=== PATIENT | female | born 1975 | race Caucasian/White ===

== ENCOUNTER 2023-02-12 00:40 | Emergency (ER) | payer MEDICAID, SELFPAY ==
[2023-02-12 00:43] VITALS: BP 171/89; PULSE 61; RESP 16; TEMP 37.1; O2SAT 100; BMI 29.2
--- NOTE | 2023-02-12 00:54 | CTR_ITS ---
PROCEDURE INFORMATION: Exam: CT Abdomen And Pelvis With Contrast Exam date and time: 02/12/2023 1:28 AM Age: 48 years old Clinical indication: Abdominal pain; Localized; Right; Prior surgery; Surgery date: 6+ months; Surgery type: Appy; Patient HX: RT sided abd pain with nausea TECHNIQUE: Imaging protocol: Computed tomography of the abdomen and pelvis with contrast. Radiation optimization: All CT scans at this facility use at least one of these dose optimization techniques: automated exposure control; mA and/or kV adjustment per patient size (includes targeted exams where dose is matched to clinical indication); or iterative reconstruction. Contrast material: OMNI 350; Contrast volume: 100 ml; Contrast route: INTRAVENOUS (IV); REPORTING DATA: Count of CT and Cardiac NM exams in prior 12 months: This patient has received 0 known CTs and 0 known cardiac nuclear medicine studies in the 12 months prior to the current study. COMPARISON: No relevant prior studies available. RADIATION DOSE METRICS: Total DLP (mGy-cm): 683.18 FINDINGS: Mediastinal space: There is mucosal thickening of the distal esophagus. Fluid is present in the esophagus. Liver: Normal. No mass. Gallbladder and bile ducts: Normal. No calcified stones. No ductal dilation. Pancreas: Normal. No ductal dilation. Spleen: Normal. No splenomegaly. Adrenal glands: Normal. No mass. Kidneys and ureters: There is a 5 mm calculus in the distal right ureter at the UVJ. Moderate right hydronephrosis/hydroureter with mild right perinephric/periureteral inflammatory stranding. Small nonobstructing left renal calculus. Stomach and bowel: Unremarkable. No obstruction. No mucosal thickening. Appendix: No evidence of appendicitis. Intraperitoneal space: Unremarkable. No free air. No significant fluid collection. Vasculature: Unremarkable. No abdominal aortic aneurysm. Lymph nodes: Unremarkable. No enlarged lymph nodes. Urinary bladder: Unremarkable as visualized. Reproductive: Unremarkable as visualized. Bones/joints: Unremarkable. No acute fracture. Soft tissues: Unremarkable. CT/CT abdomen pelvis w con* [id number] IMPRESSION: 1. There is a 5 mm calculus at the right UVJ with obstructive changes as described above. 2. There is mucosal thickening of the distal esophagus consistent with esophagitis. Follow-up to exclude neoplasm as clinically warranted. 3. There is fluid in the esophagus consistent with reflux.
--- NOTE | 2023-02-12 00:55 | W.ED.ABDPA2 ---
HPI - Abdominal Pain General: Chief Complaint: Abdominal Pain Stated Complaint: abd pain Time Seen by Provider: 02/12/23 00:42 Source: patient Mode of arrival: ambulatory Limitations: no limitations History of Present Illness: 48-year-old female states that she been having right sided abdominal pain that started 8 PM states is very sharp pain mainly in her right upper abdomen but it is her right abdomen she states pain is currently an 8 out of 10 its been constant she had nausea she denies any fevers she denies any worsening proving factors denies any dysuria. Associated Symptoms: Reports nausea; Denies chills, dysuria and fever(s) Review of Systems Const: Denies: fever(s), chills, body aches or change in appetite Eyes: Denies: blurry vision or eye discomfort ENMT: Denies: throat pain or dental pain Card: Denies: chest pain Resp: Denies: dyspnea GI: Reports: abdominal pain and nausea : Denies: dysuria Musc: Denies: neck pain or back pain Skin/Breast: Denies: rash Neuro: Denies: headache(s) Psych: Denies: depression Nabil/Lymph: Denies: easy bruising All/Imm: Denies: urticaria Physical Exam Const: COMMON NORMALS: no acute distress, patient oriented x3 and healthy appearing HENMT: COMMON NORMALS: normocephalic HEAD & SCALP: normocephalic Eye: COMMON NORMALS: conjunctivae normal CONJUNCTIVA: Yes conjunctivae normal Neck/C-Spine: COMMON NORMALS: full ROM and supple Chest: COMMONS NORMALS: normal inspection of the chest Resp: COMMON NORMALS: normal respiratory effort, No retractions, No use of accessory muscles and clear to auscultation bilaterally AUSCULTATION: clear to auscultation bilaterally Cardio: COMMON NORMALS: regular rate, regular rhythm and No murmurs present (Cardio) RATE: regular rate RHYTHM: regular rhythm GI: COMMON NORMALS: Normal to inspection, nondistended, normoactive bowel sounds present, Soft to palpation and no masses PALPATION: Yes Soft to palpation OTHER: right sided abd tenderness Extremity: COMMON NORMALS: normal to inspection and full ROM Neuro: COMMON NORMALS: patient oriented x3, moves all extremities and no focal motor deficits Psych: COMMON NORMALS: mental status grossly normal, Normal thought process present and cooperative THOUGHT PROCESS: Normal thought process present Skin: COMMON NORMALS: no rashes or lesions noted and no wounds GENERAL SKIN EXAM: no rashes or lesions noted Course Vital Signs: Vital signs: Vital Signs Temperature 98.8 F 02/12/23 00:43 Pulse Rate 75 02/12/23 01:59 Respiratory Rate 14 02/12/23 01:59 Blood Pressure 175/89 02/12/23 01:59 Pulse Oximetry 100 02/12/23 01:59 Oxygen Delivery Me thod Nasal Cannula 02/12/23 01:59 Oxygen Flow Rate 2.5 02/12/23 01:59 MDM - Abdominal Pain Medical Decision Making Patient presents with flank pain and abdominal pain does have a kidney stone no signs of UTI pain is resolved here we will place her on pain meds along with urine strainer she is to follow-up with urology she is return if worsening Medical Records I reviewed the patient's medical records. Lab Data I reviewed the patient's lab results. 02/12/23 00:55 02/12/23 01:54 Labs/Radiology: Radiology Impressions Abdomen/Pelvis CT 02/12/23 00:54 IMPRESSION: 1. There is a 5 mm calculus at the right UVJ with obstructive changes as described above. 2. There is mucosal thickening of the distal esophagus consistent with esophagitis. Follow-up to exclude neoplasm as clinically warranted. 3. There is fluid in the esophagus consistent with reflux. Laboratory Results WBC 11.6 10^3/uL (4.0-10.0) H 02/12/23 00:55 RBC 4.43 10^6/uL (4.1-5.3) 02/12/23 00:55 Hgb 10.7 g/dL (11.5-15.3) L 02/12/23 00:55 Hct 35.0 % (37.0-47.0) L 02/12/23 00:55 MCV 79.0 fl (81-99) L 02/12/23 00:55 MCH 24.2 pg (28.0-34.0) L 02/12/23 00:55 MCHC 30.6 g/dL (30.0-36.0) 02/12/23 00:55 RDW 17.0 % (12.1-15.1) H 02/12/23 00:55 Plt Count 281 10^3/cmm (130-400) 08/12/23 00:55 MPV 11.7 fL (7.4-10.4) H 02/12/23 00:55 Neut % (Auto) 86.9 % 02/12/23 00:55 Lymph % (Auto) 6.9 % 02/12/23 00:55 [place] % (Auto) 4.1 % 02/12/23 00:55 Eos % (Auto) 1.3 % 02/12/23 00:55 Baso % (Auto) 0.5 % 02/12/23 00:55 Neut # (Auto) 10.04 10^3/uL (1.8-7.7) H 02/12/23 00:55 Lymph # (Auto) 0.8 10^3/uL (0.8-4.8) 02/12/23 00:55 [place] # (Auto) 0.5 10^3/uL (0.2-0.9) 02/12/23 00:55 Eos # (Auto) 0.2 10^3/uL (0.0-0.8) 02/12/23 00:55 Baso # (Auto) 0.1 10^3/uL (0.0-0.1) 02/12/23 00:55 Nucleated RBC % (auto) 0 % 02/12/23 00:55 Nucleated RBCs # 0.0 /100WBC 02/12/23 00:55 Sodium 135 mmol/L (136-145) L 02/12/23 01:54 Potassium 3.8 mmol/L (3.5-5.1) 02/12/23 01:54 Chloride 100 mmol/L (98-107) 02/12/23 01:54 Carbon Dioxide 25 mmol/L (22-29) 02/12/23 01:54 Anion Gap 13.8 (5-19) 02/12/23 01:54 BUN 12 mg/dL (6-20) 02/12/23 01:54 Creatinine 0.9 mg/dL (0.5-0.9) 02/12/23 01:54 GFR Calculation 66.3 mL/min (90-130) L 02/12/23 01:54 Glucose 128 mg/dL (65-115) H 02/12/23 01:54 Calculated Osmolality 281 mOsm/kg (285-295) L 02/12/23 01:54 Calcium 8.8 mg/dL (8.5-10.5) 02/12/23 01:54 Total Bilirubin 0.2 mg/dL (0.15-1.2) 02/12/23 01:54 AST 15 U/L (0-32) 02/12/23 01:54 ALT 10 U/L (0-33) 02/12/23 01:54 Alkaline Phosphatase 86 U/L (35-105) 02/12/23 01:54 Total Protein 6.7 g/dL (6.6-8.7) 02/12/23 01:54 Albumin 3.9 g/dL (3.5-5.2) 02/12/23 01:54 Globulin 2.8 g/dL (1.3-4.6) 02/12/23 01:54 Lipase 23 U/L (13-60) 02/12/23 01:54 Urine Color Straw (Yellow) 02/12/23 01:07 Urine Appearance Clear (CLEAR) 02/12/23 01:07 Urine pH 9 (5-7) H 02/12/23 01:07 Ur Specific [place] 1.015 (1.005-1.030) 02/12/23 01:07 Urine Protein Neg (Negative) 02/12/23 01:07 Urine Glucose (UA) Norm (Normal) 02/12/23 01:07 Urine Ketones Negative (Negative) 02/12/23 01:07 Urine Blood 2+ (Negative) H 02/12/23 01:07 Urine Nitrate Negative (Negative) 02/12/23 01:07 Urine Bilirubin Neg (Negative) 02/12/23 01:07 Prot Sulfosalicylic Acd Negative (Negative) 02/12/23 01:07 Urine Urobilinogen Norm mg/dL (Negative) 02/12/23 01:07 Ur Leukocyte Esterase Negative (Negative) 02/12/23 01:07 Urine RBC 0-4 /hpf (0-2) H 02/12/23 01:07 Urine WBC 0-4 /hpf (0-5) H 02/12/23 01:07 Ur Squamous Epith Cells 0-4 /hpf (0-5) H 02/12/23 01:07 Amorphous Sediment 2+ /hpf 02/12/23 01:07 Urine Bacteria Trace /hpf (NONE) 02/12/23 01:07 Urine Mucus Trace /hpf 02/12/23 01:07 Discharge Plan Discharge Patient Disposition: Home Clinical Impression: Kidney stone Condition: Stable Prescriptions: New hydrocodone-acetaminophen 5-325 mg tablet 1 tab PO Q6H PRN (Reason: pain) Qty: 14 0RF ondansetron 4 mg tablet,disintegrating 4 mg PO Q6H PRN (Reason: nausea and vomiting) Qty: 14 0RF Flomax 0.4 mg capsule 0.4 mg PO DAILY Qty: 7 0RF Discharge Orders: Discharge ED (Routine); Ordered 02/12/23 Ordered By: Chicho Martel Discharge Diet: Advance as tolerated Discharge Activity: Resume usual activity Patient Instructions: Kidney Stones (ED), Opioid Safety Coding Level of Care Code ED Category Director for Karlee Alejandre
[2023-02-12 01:04] LABS: Basophils # 0.1 10^3/uL (0.0-0.1); Basophils % 0.5 %; Eosinophils # 0.2 10^3/uL (0.0-0.8); Eosinophils % 1.3 %; Hemoglobin 10.7 g/dL (11.5-15.3); Lymphocytes # 0.8 10^3/uL (0.8-4.8); Lymphocytes % 6.9 %; Mean Corpuscular HGB Conc 30.6 g/dL (30.0-36.0); Mean Corpuscular Hemoglobin 24.2 pg (28.0-34.0); Mean Platelet Volume 11.7 fL (7.4-10.4); Monocytes # 0.5 10^3/uL (0.2-0.9); Monocytes % 4.1 %; Neutrophils # 10.04 10^3/uL (1.8-7.7); Neutrophils % 86.9 %; Nucleated Red Blood Cells % 0 %; Platelet Count 281 10^3/cmm (130-400); Red Blood Count 4.43 10^6/uL (4.1-5.3); White Blood Count 11.6 10^3/uL (4.0-10.0)
[2023-02-12 01:10] VITALS: RESP 18
[2023-02-12] MEDS: ondansetron 2 mg/ML SDV 2 mL 4 MG IVP (01:10)
[2023-02-12] MEDS: morphine 4 mg/mL SDV 1 mL IVP (01:10)
[2023-02-12 01:26] LABS: Urine Appearance Clear (CLEAR); Urine Color Straw (Yellow); pH Urine 9 (5-7)
[2023-02-12 01:27] LABS: Add Urine Microscopic? YES; Bilirubin Urine Neg (Negative); Blood Urine 2+ (Negative); Glucose Urine UA Norm (Normal); Ketones Urine Negative (Negative); Leukocyte Esterase Urine Negative (Negative); Nitrate Urine Negative (Negative); Protein Urine Neg (Negative); Specific Gravity, Urine 1.015 (1.005-1.030); Sulfosalicylic Acid Urine Negative (Negative); Urobilinogen Urine Norm (Negative)
[2023-02-12] MEDS: iohexol 350 mg/mL 500 mL Btl (per mL) IV (01:30)
[2023-02-12 01:31] LABS: Add Urine Culture? No; Amorphous Sediment Urine 2+ /hpf; Bacteria Urine TRACE /hpf; Mucus Urine TRACE /hpf; RBC Urine 0-4 /hpf (0-2); Squamous Epithelial Cell Urine 0-4 /hpf (0-5); WBC Urine 0-4 /hpf (0-5)
[2023-02-12 01:46] VITALS: RESP 18
[2023-02-12] MEDS: HYDROmorphone 1 mg/mL INJ 1 mL IVP (01:46)
[2023-02-12] MEDS: ketorolac 30 mg/mL INJ 15 MG IVP (01:58)
[2023-02-12 01:59] VITALS: BP 175/89; PULSE 75; RESP 14; O2SAT 100
[2023-02-12 02:26] LABS: Alanine Aminotransferase 10 U/L (0-33); Albumin Level 3.9 g/dL (3.5-5.2); Alkaline Phosphatase 86 U/L (35-105); Anion Gap 13.8 (5-19); Aspartate Amino Transferase 15 U/L (0-32); Blood Urea Nitrogen 12 mg/dL (6-20); Calcium 8.8 mg/dL (8.5-10.5); Carbon Dioxide 25 mmol/L (22-29); Chloride 100 mmol/L (98-107); Globulin 2.8 g/dL (1.3-4.6); Glomerular Filtration Rate 66.3 mL/min (90-130); Glucose 128 mg/dL (65-115); Lipase 23 U/L (13-60); Osmolality Calculated 281 mOsm/kg (285-295); Potassium 3.8 mmol/L (3.5-5.1); Sodium 135 mmol/L (136-145); Total Bilirubin 0.2 mg/dL (0.15-1.2); Total Protein 6.7 g/dL (6.6-8.7)
[2023-02-12] MEDS: HYDROcodone-acetaminophen 5-325 mg Tablet 1 TAB PO (03:01)
[2023-02-12 03:02] VITALS: BP 173/99; PULSE 68; RESP 18; O2SAT 98
--- NOTE | 2023-02-14 11:21 | DCPLANNER ---
human resources office manager had message to schedule a follow up appointment for patient with urology. human resources office manager called phone number [phone] to confirm where patient would like referral sent. human resources office manager unable to speak with patient at this time, a voicemail was left for patient to return caser phone call.
== END 2023-02-12 03:08 | disposition home or self-care (01) ==
PROVIDERS: Emergency Provider Emergency Medicine
DX: N20.0 Calculus of kidney (principal)
CPT/HCPCS: 74177; 80053; 81001; 83690; 85025; 96374; 96375; 99285; J1170; J1885; J2270; J2405; Q9967

== ENCOUNTER 2023-02-12 23:58 | Emergency (ER) | payer MEDICAID, SELFPAY ==
[2023-02-13] VITALS (11 sets, daily range): BP systolic 97–122; BP diastolic 61–79; PULSE 89–122; RESP 15–18; TEMP 36.3–36.9; O2SAT 91–100; BMI 29.7
--- NOTE | 2023-02-13 00:19 | W.ED.ABDPA2 ---
HPI - Abdominal Pain General: Chief Complaint: Abdominal Pain Stated Complaint: fever, cramping Time Seen by Provider: 02/13/23 00:05 Source: patient Mode of arrival: ambulatory Limitations: no limitations History of Present Illness: 48-year-old female who was seen here this morning she diagnosed with a kidney stone states that today she has felt feverish and has had some malaise continue have some flank pain patient was actually sleeping when I first walked in the room no vomiting no diarrhea she denies any worsening proving factors. Associated Symptoms: Reports fever(s); Denies chills, diarrhea, nausea and vomiting Review of Systems Const: Reports: fever(s); Denies: chills, body aches or change in appetite Eyes: Denies: eye discomfort ENMT: Denies: throat pain or dental pain Card: Denies: chest pain Resp: Denies: dyspnea GI: Denies: abdominal pain, nausea, vomiting or diarrhea : Reports: flank pain Musc: Denies: neck pain or back pain Skin/Breast: Denies: rash Neuro: Denies: headache(s) Physical Exam Const: COMMON NORMALS: no acute distress, patient oriented x3 and healthy appearing HENMT: COMMON NORMALS: normocephalic and atraumatic HEAD & SCALP: normocephalic and atraumatic Neck/C-Spine: COMMON NORMALS: full ROM and supple Chest: COMMONS NORMALS: normal inspection of the chest and normal palpation of entire chest wall Resp: COMMON NORMALS: normal respiratory effort, No retractions, No use of accessory muscles and clear to auscultation bilaterally AUSCULTATION: clear to auscultation bilaterally Cardio: COMMON NORMALS: regular rate, regular rhythm and No murmurs present (Cardio) RATE: regular rate RHYTHM: regular rhythm GI: COMMON NORMALS: Normal to inspection, nondistended, normoactive bowel sounds present, Soft to palpation, non-tender and no masses PALPATION: Yes Soft to palpation Extremity: COMMON NORMALS: normal to inspection and full ROM Neuro: COMMON NORMALS: patient oriented x3, moves all extremities and no focal motor deficits Psych: COMMON NORMALS: mental status grossly normal, Normal thought process present and cooperative THOUGHT PROCESS: Normal thought process present Skin: COMMON NORMALS: no rashes or lesions noted and no wounds GENERAL SKIN EXAM: no rashes or lesions noted Course Vital Signs: Vital signs: Vital Signs Temperature 98.4 F 02/13/23 01:11 Pulse Rate 101 H 02/13/23 01:49 Respiratory Rate 16 02/13/23 01:49 Blood Pressure 114/72 02/13/23 01:49 Pulse Oximetry 91 02/13/23 01:49 MDM - Abdominal Pain Medical Decision Making Patient presents here with infected kidney stone urine does show UTI she is febrile at home did give IV antibiotics here spoke to urology at [facility] and will transfer there. Lab Data 02/13/23 00:32 02/13/23 00:32 Labs/Radiology: Laboratory Results WBC 6.6 10^3/uL (4.0-10.0) 02/13/23 00:32 RBC 4.49 10^6/uL (4.1-5.3) 02/13/23 00:32 Hgb 10.7 g/dL (11.5-15.3) L 02/13/23 00:32 Hct 34.6 % (37.0-47.0) L 02/13/23 00:32 MCV 77.1 fl (81-99) L 02/13/23 00:32 MCH 23.8 pg (28.0-34.0) L 02/13/23 00:32 MCHC 30.9 g/dL (30.0-36.0) 02/13/23 00:32 RDW 17.2 % (12.1-15.1) H 02/13/23 00:32 Plt Count 190 10^3/cmm (130-400) D 02/13/23 00:32 MPV 11.3 fL (7.4-10.4) H 02/13/23 00:32 Neut % (Auto) 95.8 % 02/13/23 00:32 Lymph % (Auto) 3.2 % 02/13/23 00:32 [place] % (Auto) 0.2 % 02/13/23 00:32 Eos % (Auto) 0.2 % 02/13/23 00:32 Baso % (Auto) 0.3 % 02/13/23 00:32 Neut # (Auto) 6.37 10^3/uL (1.8-7.7) 02/13/23 00:32 Lymph # (Auto) 0.2 10^3/uL (0.8-4.8) L 02/13/23 00:32 [place] # (Auto) 0.0 10^3/uL (0.2-0.9) L 02/13/23 00:32 Eos # (Auto) 0.0 10^3/uL (0.0-0.8) 02/13/23 00:32 Baso # (Auto) 0.0 10^3/uL (0.0-0.1) 02/13/23 00:32 Nucleated RBC % (auto) 0 % 02/13/23 00:32 Nucleated RBCs # 0.0 /100WBC 02/13/23 00:32 Sodium 133 mmol/L (136-145) L 02/13/23 00:32 Potassium 3.3 mmol/L (3.5-5.1) L 02/13/23 00:32 Chloride 98 mmol/L (98-107) 02/13/23 00:32 Carbon Dioxide 22 mmol/L (22-29) 02/13/23 00:32 Anion Gap 16.3 (5-19) 02/13/23 00:32 BUN 17 mg/dL (6-20) 02/13/23 00:32 Creatinine 1.8 mg/dL (0.5-0.9) H 02/13/23 00:32 GFR Calculation 29.8 mL/min (90-130) L 02/13/23 00:32 Glucose 119 mg/dL (65-115) H 02/13/23 00:32 Calculated Osmolality 279 mOsm/kg (285-295) L 02/13/23 00:32 Calcium 8.5 mg/dL (8.5-10.5) 02/13/23 00:32 Total Bilirubin 0.9 mg/dL (0.15-1.2) 02/13/23 00:32 AST 48 U/L (0-32) H 02/13/23 00:32 ALT 24 U/L (0-33) 02/13/23 00:32 Alkaline Phosphatase 140 U/L (35-105) H 02/13/23 00:32 Total Protein 6.8 g/dL (6.6-8.7) 02/13/23 00:32 Albumin 3.6 g/dL (3.5-5.2) 02/13/23 00:32 Globulin 3.2 g/dL (1.3-4.6) 02/13/23 00:32 Lipase 19 U/L (13-60) 02/13/23 00:32 Urine Color Yellow (Yellow) 02/13/23 00:16 Urine Appearance Cloudy (CLEAR) A 02/13/23 00:16 Urine pH 5 (5-7) 02/13/23 00:16 Ur Specific [place] 1.015 (1.005-1.030) 02/13/23 00:16 Urine Protein 3+ (Negative) H 02/13/23 00:16 Urine Glucose (UA) Norm (Normal) 02/13/23 00:16 Urine Ketones 1+ (Negative) H 02/13/23 00:16 Urine Blood 3+ (Negative) H 02/13/23 00:16 Urine Nitrate Negative (Negative) 02/13/23 00:16 Urine Bilirubin Neg (Negative) 02/13/23 00:16 Urine Urobilinogen Norm mg/dL (Negative) 02/13/23 00:16 Ur Leukocyte Esterase 2+ (Negative) H 02/13/23 00:16 Urine RBC 5-10 /hpf (0-2) H 02/13/23 00:16 Urine WBC Too numerous to cnt /hpf (0-5) H 02/13/23 00:16 Ur Squamous Epith Cells 5-10 /hpf (0-5) H 02/13/23 00:16 Amorphous Sediment Not Reportable 02/13/23 00:16 Urine Bacteria 3+ /hpf (NONE) H 02/13/23 00:16 Discharge Plan Discharge Patient Disposition: Xfer Short-Term Hosp Clinical Impression: Kidney stone, Acute cystitis Condition: Stable Prescriptions: No Action hydrocodone-acetaminophen 5-325 mg tablet 1 tab PO Q6H PRN (Reason: pain) Qty: 14 0RF ondansetron 4 mg tablet,disintegrating 4 mg PO Q6H PRN (Reason: nausea and vomiting) Qty: 14 0RF Flomax 0.4 mg capsule 0.4 mg PO DAILY Qty: 7 0RF Coding Level of Care Code ED Call Center Agent for [place]
[2023-02-13] MEDS: ondansetron 2 mg/ML SDV 2 mL 4 MG IVP (00:25)
[2023-02-13] MEDS: HYDROmorphone 1 mg/mL INJ 1 mL IVP (00:25)
[2023-02-13] MEDS: sodium chloride 0.9% 1,000 ML 999 ML IV ×2 (00:25→04:36)
[2023-02-13] MEDS: ketorolac 30 mg/mL INJ IVP (00:25)
[2023-02-13 00:46] LABS: Basophils % 0.3 %; Eosinophils % 0.2 %; Hematocrit 34.6 % (37.0-47.0); Hemoglobin 10.7 g/dL (11.5-15.3); Lymphocytes # 0.2 10^3/uL (0.8-4.8); Lymphocytes % 3.2 %; Mean Corpuscular HGB Conc 30.9 g/dL (30.0-36.0); Mean Corpuscular Hemoglobin 23.8 pg (28.0-34.0); Mean Corpuscular Volume 77.1 fl (81-99); Mean Platelet Volume 11.3 fL (7.4-10.4); Monocytes % 0.2 %; Neutrophils # 6.37 10^3/uL (1.8-7.7); Neutrophils % 95.8 %; Nucleated Red Blood Cells % 0 %; Platelet Count 190 10^3/cmm (130-400); Red Blood Count 4.49 10^6/uL (4.1-5.3); Red Cell Distribution Width 17.2 % (12.1-15.1); White Blood Count 6.6 10^3/uL (4.0-10.0)
[2023-02-13 00:54] LABS: Urine Appearance Cloudy (CLEAR); Urine Color Yellow (Yellow); pH Urine 5 (5-7)
[2023-02-13 00:55] LABS: Add Urine Microscopic? YES; Bilirubin Urine Neg (Negative); Blood Urine 3+ (Negative); Glucose Urine UA Norm (Normal); Ketones Urine 1+ (Negative); Leukocyte Esterase Urine 2+ (Negative); Nitrate Urine Negative (Negative); Protein Urine 3+ (Negative); Specific Gravity, Urine 1.015 (1.005-1.030); Urobilinogen Urine Norm (Negative)
[2023-02-13 00:58] LABS: Bacteria Urine 3+ /hpf; WBC Urine TOO NUMEROUS TO CNT /hpf (0-5)
[2023-02-13 00:59] LABS: Add Urine Culture? Yes
[2023-02-13 01:00] LABS: Alanine Aminotransferase 24 U/L (0-33); Albumin Level 3.6 g/dL (3.5-5.2); Alkaline Phosphatase 140 U/L (35-105); Anion Gap 16.3 (5-19); Aspartate Amino Transferase 48 U/L (0-32); Blood Urea Nitrogen 17 mg/dL (6-20); Calcium 8.5 mg/dL (8.5-10.5); Carbon Dioxide 22 mmol/L (22-29); Chloride 98 mmol/L (98-107); Globulin 3.2 g/dL (1.3-4.6); Glomerular Filtration Rate 29.8 mL/min (90-130); Glucose 119 mg/dL (65-115); Lipase 19 U/L (13-60); Osmolality Calculated 279 mOsm/kg (285-295); Potassium 3.3 mmol/L (3.5-5.1); Sodium 133 mmol/L (136-145); Total Bilirubin 0.9 mg/dL (0.15-1.2); Total Protein 6.8 g/dL (6.6-8.7)
[2023-02-13] MEDS: cefTRIAXone 1,000 MG in sodium chloride 0.9% (plus) 50 ML 100 MG IV (01:08)
--- NOTE | 2023-02-13 07:18 | PC.NURSE ---
Report from RAJEEV Partida. Pt asleep at this time. Wakes up easily to verbal command. Denies needs at this time.
== END 2023-02-13 07:58 | disposition short-term general hospital (02) ==
PROVIDERS: Emergency Provider Emergency Medicine
DX: N20.0 Calculus of kidney (principal); N30.00 Acute cystitis without hematuria
CPT/HCPCS: 80053; 81001; 83690; 85025; 87077; 87086; 87186; 96361; 96365; 96375; 99284; J0696; J1170; J1885; J2405; J7030